=== PATIENT | male | born 1970 | race Caucasian/White ===

== ENCOUNTER 2016-10-24 10:43 | Emergency (ER) | payer SELFPAY ==
[~2016-10-24] VITALS: Ht 190.5 cm; Wt 161.5 kg
[~2016-10-24 10:43] MED LIST: ALBUTEROL0.09 MG/A4 IH; ALBUTEROL2.5 MG/3 M IH; ALLOPURINOL100 MG PO; ATIVAN0.5 MG PO; ATORVASTATIN; BACTRIM DS 8001 TAB PO; BLOOD PRESSURE; CARDIZEM CD 18180 MG PO; CIPRO 500MG TA500 MG PO; CRUTCHES; DILTIAZEM120 MG PO; DOXYCYCLINE 10100 MG PO; FLECAINIDE ACET50 MG PO; GOOD SENSE ASP325 M1 PO; GOOD SENSE ASPI81 M1 PO; INDOCIN50 M1 RC; INDOCIN50 MG PO; LASIX40 M1 PO; LEVO-T175 MCG PO; LEVOTHROID0.05 MG PO; LEVOTHROID0.1 MG PO; LEVOTHYROXIN0.125 MG PO; MEDI-FIRST ASP325 MG PO; NAPROXEN500 MG PO; NITROGLYCERIN0.4 MG SL; NO HOME MEDICATIONS; NORCO 325 MG-101 TA1 PO; NORCO 325 MG-101 TAB PO; NORCO 325 MG-51 TAB PO; PERCOCET 7.5/321 TA1 PO; PRADAXA 150MG150 MG PO; PREDNISONE20 M1 PO; PREDNISONE20 MG PO; SPIRIVA18 MCG IH; ST. JOSEPH81 M2; SYMBICORT1 AE2 IH; TYLENOL 500MG500 MG PO; VENTOLIN0.09 MG IH; ZITHROMAX Z PA250 MG PO
[2016-10-24] MEDS ORDERED: CARDIZEM 60MG T60 MG PO (13:10)
[2016-10-24] MEDS ORDERED: RT ALBUTEROL CC18 GM IH (13:45)
[2016-10-24] MEDS ORDERED: NORCO 10-325 T1 EACH PO (13:45)
[2016-10-24 14:00] VITALS: BP 168/85
== END 2016-10-24 14:00 | disposition home or self-care (01) ==
LOC: ED 10:43
DX: I11.0 Hypertensive heart disease with heart failure (principal); I50.9 Heart failure, unspecified; J44.9 Chronic obstructive pulmonary disease, unspecified; J98.01 Acute bronchospasm; R07.89 Other chest pain; G89.29 Other chronic pain; R74.8 Abnormal levels of other serum enzymes; I48.91 Unspecified atrial fibrillation; I25.10 Atherosclerotic heart disease of native coronary artery without angina pectoris; I25.2 Old myocardial infarction; Z86.718 Personal history of other venous thrombosis and embolism; Z79.01 Long term (current) use of anticoagulants; F17.210 Nicotine dependence, cigarettes, uncomplicated; F41.9 Anxiety disorder, unspecified
CPT/HCPCS: J2270

== ENCOUNTER 2017-01-06 12:44 | Emergency (ER) | payer SELFPAY ==
[~2017-01-06] VITALS: Ht 190.5 cm; Wt 156.0 kg
[~2017-01-06 12:44] MED LIST changes: +CARDIZEM 60MG T60 MG PO; +NORCO 10-325 T1 EACH PO; +RT ALBUTEROL CC18 GM IH
[2017-01-06] MEDS ORDERED: NORCO 10-325 T1 EACH PO (16:03)
[2017-01-06] MEDS ORDERED: ATIVAN2 MG PO (16:03)
[2017-01-06] MEDS ORDERED: LOPRESSOR 550 MG/TAB PO (16:03)
[2017-01-06 16:16] VITALS: BP 109/75
== END 2017-01-06 16:15 | disposition home or self-care (01) ==
LOC: ED 12:44
DX: I48.91 Unspecified atrial fibrillation (principal); R00.2 Palpitations; R00.0 Tachycardia, unspecified; I25.10 Atherosclerotic heart disease of native coronary artery without angina pectoris; E03.9 Hypothyroidism, unspecified; J44.9 Chronic obstructive pulmonary disease, unspecified; I50.9 Heart failure, unspecified; F17.200 Nicotine dependence, unspecified, uncomplicated; Z79.02 Long term (current) use of antithrombotics/antiplatelets; Z91.14 Patient's other noncompliance with medication regimen
CPT/HCPCS: J2060; J3010

== ENCOUNTER 2017-01-14 02:27 | Emergency (ER) | payer SELFPAY ==
[~2017-01-14] VITALS: Ht 190.5 cm; Wt 150.0 kg
[~2017-01-14 02:27] MED LIST changes: +ATIVAN2 MG PO; +LOPRESSOR 550 MG/TAB PO
[2017-01-14] MEDS ORDERED: LOPRESSOR 550 MG/TAB PO (02:41)
[2017-01-14 07:00] VITALS: BP 150/74
== END 2017-01-14 07:00 | disposition home or self-care (01) ==
LOC: ED 02:27
DX: R10.12 Left upper quadrant pain (principal); R10.32 Left lower quadrant pain; R73.9 Hyperglycemia, unspecified; R74.8 Abnormal levels of other serum enzymes; I10 Essential (primary) hypertension; I48.91 Unspecified atrial fibrillation; F17.200 Nicotine dependence, unspecified, uncomplicated; Z79.02 Long term (current) use of antithrombotics/antiplatelets
CPT/HCPCS: J1885; J2060; J3010

== ENCOUNTER 2017-01-20 15:07 | Emergency (ER) | payer SELFPAY ==
[~2017-01-20] VITALS: Ht 190.5 cm; Wt 150.0 kg
[2017-01-20] MEDS ORDERED: NOVAPLUS LO (15:18)
== END 2017-01-20 15:35 | disposition left against medical advice (07) ==
LOC: ED 15:07
DX: Z79.01 Long term (current) use of anticoagulants (principal); Z53.21 Procedure and treatment not carried out due to patient leaving prior to being seen by health care provider; I48.91 Unspecified atrial fibrillation; I25.10 Atherosclerotic heart disease of native coronary artery without angina pectoris; I50.9 Heart failure, unspecified; I25.2 Old myocardial infarction; I47.1 Supraventricular tachycardia; Z86.711 Personal history of pulmonary embolism; F17.200 Nicotine dependence, unspecified, uncomplicated

== ENCOUNTER 2018-06-13 21:10 | Emergency (ER) | payer MEDICAID ==
[~2018-06-13 21:10] MED LIST changes: +NOVAPLUS LO
[2018-06-13 21:43] LABS: EOS # 0.5 (0.04-0.40); EOS % 6.8 % (0.0-4.0); HEMATOCRIT 40.1 % (42.0-52.0); HEMOGLOBIN 13.2 g/dL (13.5-18.0); LYMPH# 2.5 (1.50-4.00); MEAN CELL VOLUME 90 fl (78-100); MEAN CORPUSCULAR HEMOGLOBIN 30 pg (27-31); MEAN CORPUSCULAR HGB CONC 33 g/dL (33-37); MONO # 0.6 (0.20-0.80); NEU # 3.6 (1.40-6.50); PLATELET COUNT 160 K/mm3 (130-400); RED BLOOD COUNT 4.48 M/mm3 (4.20-5.60); RED CELL DISTRIBUTION WIDTH 13.2 % (11.5-14.5); WHITE BLOOD COUNT 7.2 K/mm3 (4.8-10.8)
[2018-06-13 21:55] LABS: ALBUMIN 5.1 g/dL (3.5-5.0); CALCIUM 10.3 mg/dL (8.4-10.2); POTASSIUM 4.3 mmol/L (3.6-5.0); TOTAL PROTEIN 8.8 g/dL (6.3-8.2)
[2018-06-13 22:03] LABS: CKMB ISOENZYME 0.7 ng/mL (0.6-3.5)
[2018-06-13] MEDS ORDERED: METFORMIN ER500 MG PO (22:05)
[2018-06-13 22:06] LABS: TROPONIN-I < 0.03 ng/mL (0.00-0.06)
[2018-06-13] MEDS ORDERED: LANTUS SOLOS100 U/ML SQ (22:06)
[2018-06-13] MEDS ORDERED: ADVAIR DISKUS1 DS2 IH (22:06)
[2018-06-13] MEDS ORDERED: ATORVASTATIN CA20 MG PO (22:07)
[2018-06-13] MEDS ORDERED: LISINOPRIL20 MG PO (22:07)
[2018-06-13] MEDS ORDERED: NITROSTAT0.3 MG SL (22:08)
[2018-06-13 22:24] LABS: D-DIMER 0.44 mg/L FEU (0.15-0.50)
[2018-06-13 22:42] LABS: URINE APPEARANCE CLEAR; URINE BILIRUBIN NEGATIVE (NEGATIVE); URINE COLOR YELLOW; URINE GLUCOSE NEGATIVE (NEGATIVE); URINE KETONE NEGATIVE (NEGATIVE); URINE NITRATE NEGATIVE (NEGATIVE); URINE PROTEIN(semi-quant) TRACE mg/dL (NEGATIVE); URINE UROBILINOGEN NORMAL (NORMAL)
[2018-06-13 22:43] LABS: URINE BLOOD NEGATIVE (NEGATIVE); URINE LEUKOCYTE ESTERASE NEGATIVE (NEGATIVE); URINE MUCUS PRESENT (NOT PRESENT); URINE WBC 0-1 /hpf (0-3)
[2018-06-13 23:56] VITALS: BP 106/56
== END 2018-06-13 23:56 | disposition short-term general hospital (02) ==
LOC: ED 21:10
PROVIDERS: Physician Assistant
DX: I25.110 Atherosclerotic heart disease of native coronary artery with unstable angina pectoris (principal); J44.9 Chronic obstructive pulmonary disease, unspecified; I48.91 Unspecified atrial fibrillation; M19.90 Unspecified osteoarthritis, unspecified site; E11.42 Type 2 diabetes mellitus with diabetic polyneuropathy; F17.210 Nicotine dependence, cigarettes, uncomplicated; Z79.84 Long term (current) use of oral hypoglycemic drugs; Z79.82 Long term (current) use of aspirin; Z88.6 Allergy status to analgesic agent; Z95.9 Presence of cardiac and vascular implant and graft, unspecified; Z87.19 Personal history of other diseases of the digestive system; Z88.8 Allergy status to other drugs, medicaments and biological substances
CPT/HCPCS: J2270; J2405; J3010; J7030

== ENCOUNTER 2018-09-15 19:04 | Emergency (ER) | payer MEDICAID ==
[~2018-09-15] VITALS: Ht 190.5 cm; Wt 146.4 kg
[~2018-09-15 19:04] MED LIST changes: +ADVAIR DISKUS1 DS2 IH; +ATORVASTATIN CA20 MG PO; +LANTUS SOLOS100 U/ML SQ; +LISINOPRIL20 MG PO; +METFORMIN ER500 MG PO; +NITROSTAT0.3 MG SL
[2018-09-15 20:05] LABS: EOS # 0.4 (0.04-0.40); HEMATOCRIT 36.7 % (42.0-52.0); HEMOGLOBIN 11.9 g/dL (13.5-18.0); LYMPH# 1.9 (1.50-4.00); MEAN CELL VOLUME 91 fl (78-100); MEAN CORPUSCULAR HEMOGLOBIN 30 pg (27-31); MEAN CORPUSCULAR HGB CONC 32 g/dL (33-37); MONO # 0.6 (0.20-0.80); PLATELET COUNT 146 K/mm3 (130-400); RED BLOOD COUNT 4.02 M/mm3 (4.20-5.60); RED CELL DISTRIBUTION WIDTH 14.6 % (11.5-14.5); WHITE BLOOD COUNT 5.9 K/mm3 (4.8-10.8)
[2018-09-15 20:13] LABS: EOS % 6.6 % (0.0-4.0)
[2018-09-15 20:25] LABS: D-DIMER 0.86 mg/L FEU (0.15-0.50); PARTIAL THROMBOPLASTIN TIME 24.1 SECONDS (21.0-32.0); PROTHROMBIN TIME 9.6 SECONDS (9.0-12.0)
[2018-09-15 20:59] LABS: ALBUMIN 4.8 g/dL (3.5-5.0); POTASSIUM 3.7 mmol/L (3.6-5.0); TOTAL BILIRUBIN 0.6 mg/dL (0.2-1.3); TOTAL PROTEIN 8.4 g/dL (6.3-8.2)
[2018-09-15 21:02] LABS: URINE APPEARANCE CLEAR; URINE BILIRUBIN NEGATIVE (NEGATIVE); URINE BLOOD NEGATIVE (NEGATIVE); URINE COLOR YELLOW; URINE GLUCOSE NEGATIVE (NEGATIVE); URINE KETONE NEGATIVE (NEGATIVE); URINE LEUKOCYTE ESTERASE NEGATIVE (NEGATIVE); URINE NITRATE NEGATIVE (NEGATIVE); URINE PROTEIN(semi-quant) NEGATIVE (NEGATIVE); URINE UROBILINOGEN NORMAL (NORMAL); URINE WBC 0-1 /hpf (0-3)
[2018-09-15 21:06] LABS: ERYTHROCYTE SEDIMENTATION RATE 66 mm/hr (0-15)
[2018-09-15] MEDS ORDERED: NORCO 325 MG-51 TA1 PO (23:31)
[2018-09-15] MEDS ORDERED: PREDNISONE20 M1 PO (23:31)
[2018-09-15] MEDS ORDERED: LORAZEPAM0.5 M1 PO (23:31)
[2018-09-15 23:43] VITALS: BP 110/75
== END 2018-09-15 23:43 | disposition home or self-care (01) ==
LOC: ED 19:04
PROVIDERS: Family Medicine
DX: G90.50 Complex regional pain syndrome I, unspecified (principal); M10.9 Gout, unspecified; I50.9 Heart failure, unspecified; F41.9 Anxiety disorder, unspecified; I48.91 Unspecified atrial fibrillation; I25.10 Atherosclerotic heart disease of native coronary artery without angina pectoris; E11.42 Type 2 diabetes mellitus with diabetic polyneuropathy; F17.210 Nicotine dependence, cigarettes, uncomplicated; Z98.890 Other specified postprocedural states
CPT/HCPCS: J0595; J2060

== ENCOUNTER 2018-09-30 18:16 | Emergency (ER) | payer MEDICAID ==
[~2018-09-30] VITALS: Ht 190.5 cm; Wt 152.3 kg
[~2018-09-30 18:16] MED LIST changes: +LORAZEPAM0.5 M1 PO; +NORCO 325 MG-51 TA1 PO
[2018-09-30] MEDS ORDERED: COLCHICINE0.6 M1 PO (19:52)
[2018-09-30] MEDS ORDERED: ZYLOPRIM 100MG100 MG PO (20:25)
[2018-09-30] MEDS ORDERED: ULORIC40 MG PO (20:25)
[2018-09-30 20:28] LABS: EOS # 0.3 (0.04-0.40); HEMATOCRIT 40.2 % (42.0-52.0); HEMOGLOBIN 12.8 g/dL (13.5-18.0); LYMPH# 2.1 (1.50-4.00); MEAN CELL VOLUME 90 fl (78-100); MEAN CORPUSCULAR HEMOGLOBIN 29 pg (27-31); MEAN CORPUSCULAR HGB CONC 32 g/dL (33-37); MEAN PLATELET VOLUME 9.1 fl (7.4-10.4); MONO # 0.7 (0.20-0.80); NEU # 7.4 (1.40-6.50); PLATELET COUNT 254 K/mm3 (130-400); RED BLOOD COUNT 4.46 M/mm3 (4.20-5.60); RED CELL DISTRIBUTION WIDTH 14.4 % (11.5-14.5); WHITE BLOOD COUNT 10.5 K/mm3 (4.8-10.8)
[2018-09-30 20:50] LABS: ALBUMIN 4.6 g/dL (3.5-5.0); ALT/SGPT 38 U/L (0-55); AST-SGOT 30 U/L (5-34); CALCIUM 10.8 mg/dL (8.4-10.2); GLUCOSE 86 mg/dL (75-110); POTASSIUM 3.7 mmol/L (3.5-5.1); SODIUM 137 mmol/L (136-145); TOTAL BILIRUBIN 0.6 mg/dL (0.2-1.2); TOTAL PROTEIN 8.5 g/dL (6.4-8.3)
[2018-09-30 20:55] LABS: CARBON DIOXIDE 16 mmol/L (22-29)
[2018-09-30 20:56] LABS: TROPONIN-I < 0.03 ng/mL (<0.030)
[2018-09-30 21:16] LABS: ERYTHROCYTE SEDIMENTATION RATE 83 mm/hr (0-15)
[2018-10-01 02:05] VITALS: BP 113/68
[2018-10-01 08:05] LABS: URINE APPEARANCE CLEAR; URINE BILIRUBIN NEGATIVE (NEGATIVE); URINE BLOOD NEGATIVE (NEGATIVE); URINE COLOR YELLOW; URINE GLUCOSE NEGATIVE (NEGATIVE); URINE KETONE NEGATIVE (NEGATIVE); URINE LEUKOCYTE ESTERASE NEGATIVE (NEGATIVE); URINE NITRATE NEGATIVE (NEGATIVE); URINE PROTEIN(semi-quant) TRACE mg/dL (NEGATIVE); URINE UROBILINOGEN NORMAL (NORMAL)
[2018-10-01 08:06] LABS: URINE WBC 0-1 /hpf (0-3)
== END 2018-10-01 02:05 | disposition short-term general hospital (02) ==
LOC: ED 18:16
PROVIDERS: Family Medicine
DX: M25.50 Pain in unspecified joint (principal); E87.2 Acidosis; N17.8 Other acute kidney failure; R34 Anuria and oliguria; I48.91 Unspecified atrial fibrillation; E11.40 Type 2 diabetes mellitus with diabetic neuropathy, unspecified; I10 Essential (primary) hypertension; Z98.890 Other specified postprocedural states
CPT/HCPCS: J3010; J7030

== ENCOUNTER 2018-10-04 21:34 | Emergency (ER) | payer MEDICAID ==
[~2018-10-04] VITALS: Ht 188 cm; Wt 145.5 kg
[2018-10-04 21:34] VITALS: BP 98/50
[~2018-10-04 21:34] MED LIST changes: +COLCHICINE0.6 M1 PO; +ULORIC40 MG PO; +ZYLOPRIM 100MG100 MG PO
== END 2018-10-04 21:45 | disposition left against medical advice (07) ==
LOC: ED 21:34
DX: R52 Pain, unspecified (principal); Z53.21 Procedure and treatment not carried out due to patient leaving prior to being seen by health care provider

== ENCOUNTER 2018-10-18 19:54 | Emergency (ER) | payer MEDICAID ==
[~2018-10-18] VITALS: Ht 190.5 cm; Wt 150.0 kg
[2018-10-18 20:00] VITALS: BP 101/47
[2018-10-18 21:18] LABS: EOS # 0.3 (0.04-0.40); EOS % 3.2 % (0.0-4.0); HEMOGLOBIN 12.6 g/dL (13.5-18.0); LYMPH# 1.6 (1.50-4.00); MEAN CELL VOLUME 90 fl (78-100); MEAN CORPUSCULAR HEMOGLOBIN 28 pg (27-31); MEAN CORPUSCULAR HGB CONC 32 g/dL (33-37); MEAN PLATELET VOLUME 9.1 fl (7.4-10.4); MONO # 0.5 (0.20-0.80); PLATELET COUNT 161 K/mm3 (130-400); RED BLOOD COUNT 4.45 M/mm3 (4.20-5.60); RED CELL DISTRIBUTION WIDTH 14.4 % (11.5-14.5); WHITE BLOOD COUNT 8.4 K/mm3 (4.8-10.8)
[2018-10-18 21:52] LABS: ACETAMINOPHEN 15 ug/mL; ALBUMIN 4.3 g/dL (3.5-5.0); ALCOHOL IN-HOUSE 155 mg/dL (<10); ALT/SGPT 44 U/L (0-55); AST-SGOT 24 U/L (5-34); CALCIUM 9.8 mg/dL (8.3-10.5); GLUCOSE 126 mg/dL (75-110); SODIUM 139 mmol/L (136-145); TOTAL BILIRUBIN 0.8 mg/dL (0.2-1.2); TOTAL PROTEIN 7.6 g/dL (6.4-8.3)
[2018-10-18 21:55] LABS: CARBON DIOXIDE 17 mmol/L (22-29)
[2018-10-18 22:07] LABS: ERYTHROCYTE SEDIMENTATION RATE 58 mm/hr (0-15)
== END 2018-10-18 22:25 | disposition left against medical advice (07) ==
LOC: ED 19:54
PROVIDERS: Nurse Practitioner Family
DX: M25.50 Pain in unspecified joint (principal); M79.10 Myalgia, unspecified site; M06.9 Rheumatoid arthritis, unspecified; I48.91 Unspecified atrial fibrillation; E11.9 Type 2 diabetes mellitus without complications; I10 Essential (primary) hypertension; E07.9 Disorder of thyroid, unspecified; E11.42 Type 2 diabetes mellitus with diabetic polyneuropathy; F17.210 Nicotine dependence, cigarettes, uncomplicated; Z98.890 Other specified postprocedural states
CPT/HCPCS: J3010

== ENCOUNTER 2019-01-19 23:13 | Emergency (ER) | payer MEDICAID ==
[~2019-01-19] VITALS: Ht 190.5 cm; Wt 145.5 kg
[2019-01-19] MEDS ORDERED: ELIQUIS5 MG PO (23:29)
[2019-01-20 00:54] LABS: EOS # 0.2 (0.04-0.40); EOS % 4.2 % (0.0-4.0); HEMATOCRIT 35.2 % (42.0-52.0); HEMOGLOBIN 11.2 g/dL (13.5-18.0); LYMPH# 1.5 (1.50-4.00); MEAN CELL VOLUME 93 fl (78-100); MEAN CORPUSCULAR HEMOGLOBIN 30 pg (27-31); MEAN CORPUSCULAR HGB CONC 32 g/dL (33-37); MEAN PLATELET VOLUME 9.1 fl (7.4-10.4); MONO # 0.4 (0.20-0.80); NEU # 3.2 (1.40-6.50); PLATELET COUNT 138 K/mm3 (130-400); RED BLOOD COUNT 3.77 M/mm3 (4.20-5.60); RED CELL DISTRIBUTION WIDTH 14.4 % (11.5-14.5); WHITE BLOOD COUNT 5.4 K/mm3 (4.8-10.8)
[2019-01-20 00:55] LABS: ALBUMIN 4.1 g/dL (3.5-5.0); POTASSIUM 3.6 mmol/L (3.5-5.1)
[2019-01-20 00:57] LABS: CALCIUM 9.3 mg/dL (8.3-10.5)
[2019-01-20 00:58] LABS: TOTAL PROTEIN 7.7 g/dL (6.4-8.3)
[2019-01-20 00:59] LABS: TOTAL BILIRUBIN 0.7 mg/dL (0.2-1.2)
[2019-01-20] MEDS ORDERED: PREDNISONE10 MG PO (01:26)
[2019-01-20] MEDS ORDERED: NORCO 10-325 T1 EACH PO (01:26)
[2019-01-20 01:44] VITALS: BP 133/78
== END 2019-01-20 01:44 | disposition home or self-care (01) ==
LOC: ED 23:13
PROVIDERS: Family Medicine
DX: M17.0 Bilateral primary osteoarthritis of knee (principal); M19.072 Primary osteoarthritis, left ankle and foot; M19.071 Primary osteoarthritis, right ankle and foot; M19.011 Primary osteoarthritis, right shoulder; M19.012 Primary osteoarthritis, left shoulder; M19.031 Primary osteoarthritis, right wrist; M19.032 Primary osteoarthritis, left wrist; I12.0 Hypertensive chronic kidney disease with stage 5 chronic kidney disease or end stage renal disease; E11.22 Type 2 diabetes mellitus with diabetic chronic kidney disease; N18.6 End stage renal disease; E03.9 Hypothyroidism, unspecified; I48.91 Unspecified atrial fibrillation; F17.210 Nicotine dependence, cigarettes, uncomplicated; Z95.9 Presence of cardiac and vascular implant and graft, unspecified; Z79.84 Long term (current) use of oral hypoglycemic drugs; Z79.01 Long term (current) use of anticoagulants
CPT/HCPCS: J3301

== ENCOUNTER 2019-03-11 09:20 | Emergency (ER) | payer MEDICAID ==
[~2019-03-11] VITALS: Wt 166.6 kg
[~2019-03-11 09:20] MED LIST changes: +ELIQUIS5 MG PO; +PREDNISONE10 MG PO
[2019-03-11] MEDS ORDERED: B-121000 MCG PO (09:29)
[2019-03-11] MEDS ORDERED: ACETAMINOPHEN-H1 TA1 PO (09:30)
[2019-03-11 09:52] LABS: EOS % 0.9 % (0.0-4.0); HEMATOCRIT 28.9 % (42.0-52.0); HEMOGLOBIN 9.1 g/dL (13.5-18.0); MEAN CELL VOLUME 94 fl (78-100); MEAN CORPUSCULAR HEMOGLOBIN 30 pg (27-31); MEAN CORPUSCULAR HGB CONC 32 g/dL (33-37); MEAN PLATELET VOLUME 8.2 fl (7.4-10.4); MONO # 0.5 (0.20-0.80); NEU # 3.3 (1.40-6.50); PLATELET COUNT 90 K/mm3 (130-400); RED BLOOD COUNT 3.06 M/mm3 (4.20-5.60); RED CELL DISTRIBUTION WIDTH 15.7 % (11.5-14.5); WHITE BLOOD COUNT 4.5 K/mm3 (4.8-10.8)
[2019-03-11 09:53] LABS: LYMPH# 0.7 (1.50-4.00)
[2019-03-11 10:03] LABS: ALBUMIN 3.8 g/dL (3.5-5.0)
[2019-03-11 10:04] LABS: POTASSIUM 4.6 mmol/L (3.5-5.1)
[2019-03-11 10:05] LABS: CALCIUM 9.1 mg/dL (8.3-10.5)
[2019-03-11 10:06] LABS: TOTAL PROTEIN 7.2 g/dL (6.4-8.3)
[2019-03-11 10:08] LABS: TOTAL BILIRUBIN 1.1 mg/dL (0.2-1.2)
[2019-03-11] MEDS ORDERED: NORCO 10-325 T1 EACH PO (10:55)
[2019-03-11 11:00] VITALS: BP 167/82
== END 2019-03-11 11:00 | disposition home or self-care (01) ==
LOC: ED 09:20
PROVIDERS: Nurse Practitioner Primary Care
DX: R10.31 Right lower quadrant pain (principal); I11.0 Hypertensive heart disease with heart failure; I50.9 Heart failure, unspecified; I25.2 Old myocardial infarction; F17.210 Nicotine dependence, cigarettes, uncomplicated; Z95.9 Presence of cardiac and vascular implant and graft, unspecified; Z98.890 Other specified postprocedural states
CPT/HCPCS: J2270

== ENCOUNTER 2019-05-29 16:28 | Emergency (ER) | payer MEDICAID ==
[~2019-05-29] VITALS: Wt 157.3 kg
[~2019-05-29 16:28] MED LIST changes: +ACETAMINOPHEN-H1 TA1 PO; +B-121000 MCG PO
[2019-05-29] MEDS ORDERED: PANTOPRAZOLE SO40 MG PO (17:35)
[2019-05-29] MEDS ORDERED: FOLIC ACID1 MG PO (17:35)
[2019-05-29] MEDS ORDERED: THIAMINE HCL100 M2 PO (17:35)
[2019-05-29] MEDS ORDERED: ACIDOPHILUS1 EAC3 PO (17:35)
[2019-05-29 18:49] LABS: EOS # 0.3 (0.04-0.40); EOS % 3.2 % (0.0-4.0); HEMATOCRIT 36.2 % (42.0-52.0); HEMOGLOBIN 11.3 g/dL (13.5-18.0); LYMPH# 2.1 (1.50-4.00); MEAN CELL VOLUME 95 fl (78-100); MEAN CORPUSCULAR HEMOGLOBIN 30 pg (27-31); MEAN CORPUSCULAR HGB CONC 31 g/dL (33-37); MEAN PLATELET VOLUME 9.1 fl (7.4-10.4); MONO # 0.5 (0.20-0.80); PLATELET COUNT 230 K/mm3 (130-400); RED BLOOD COUNT 3.83 M/mm3 (4.20-5.60); RED CELL DISTRIBUTION WIDTH 14.2 % (11.5-14.5); WHITE BLOOD COUNT 8.9 K/mm3 (4.8-10.8)
[2019-05-29 18:53] LABS: ALBUMIN 4.2 g/dL (3.5-5.0); POTASSIUM 4.1 mmol/L (3.5-5.1); SODIUM 139 mmol/L (136-145)
[2019-05-29 18:55] LABS: GLUCOSE 114 mg/dL (75-110)
[2019-05-29 18:57] LABS: TOTAL BILIRUBIN 0.4 mg/dL (0.2-1.2)
[2019-05-29 18:58] LABS: ALCOHOL IN-HOUSE 147 mg/dL (<10)
[2019-05-29 19:00] LABS: AST-SGOT 40 U/L (5-34); CARBON DIOXIDE 17 mmol/L (22-29)
[2019-05-29 19:02] LABS: ALT/SGPT 43 U/L (0-55)
[2019-05-29 19:03] LABS: LIPASE 29 U/L (8-78)
[2019-05-29 19:53] LABS: TROPONIN-I < 0.03 ng/mL (<0.030)
[2019-05-29 19:55] LABS: URINE WBC 0 /hpf (0-3)
[2019-05-29 20:28] LABS: URINE APPEARANCE CLEAR; URINE BILIRUBIN NEGATIVE (NEGATIVE); URINE BLOOD NEGATIVE (NEGATIVE); URINE COLOR YELLOW; URINE GLUCOSE NEGATIVE (NEGATIVE); URINE KETONE NEGATIVE (NEGATIVE); URINE LEUKOCYTE ESTERASE NEGATIVE (NEGATIVE); URINE NITRATE NEGATIVE (NEGATIVE); URINE PROTEIN(semi-quant) TRACE mg/dL (NEGATIVE); URINE UROBILINOGEN NORMAL (NORMAL)
[2019-05-29 22:45] VITALS: BP 142/68
== END 2019-05-29 22:45 | disposition home or self-care (01) ==
LOC: ED 16:28
PROVIDERS: Physician Assistant
DX: J44.9 Chronic obstructive pulmonary disease, unspecified (principal); R07.89 Other chest pain; I11.0 Hypertensive heart disease with heart failure; I50.9 Heart failure, unspecified; M19.90 Unspecified osteoarthritis, unspecified site; E11.9 Type 2 diabetes mellitus without complications; E78.5 Hyperlipidemia, unspecified; K21.9 Gastro-esophageal reflux disease without esophagitis; E03.9 Hypothyroidism, unspecified; I48.91 Unspecified atrial fibrillation; F17.210 Nicotine dependence, cigarettes, uncomplicated; Z86.718 Personal history of other venous thrombosis and embolism; Z79.01 Long term (current) use of anticoagulants; Z79.84 Long term (current) use of oral hypoglycemic drugs; Z79.51 Long term (current) use of inhaled steroids
CPT/HCPCS: J1940; J2270; J3301

== ENCOUNTER 2019-06-18 16:04 | Inpatient (IN) | payer MEDICAID ==
[~2019-06-18] VITALS: Ht 190.5 cm; Wt 155.0 kg
[~2019-06-18 16:04] MED LIST changes: +ACIDOPHILUS1 EAC3 PO; +FOLIC ACID1 MG PO; +METOPROLOL TAR100 M1 PO; -NITROSTAT0.3 MG SL; +NITROSTAT0.4 M1 SL; +PANTOPRAZOLE SO40 MG PO; +THIAMINE HCL100 M2 PO; -TYLENOL 500MG500 MG PO; +TYLENOL EXTRA500 M2 PO
[2019-06-18] MEDS ORDERED: CELEXA 20MG20 MG/TA1 PO (16:18)
[2019-06-18] MEDS ORDERED: ELIQUIS5 MG PO (16:19)
[2019-06-18 17:08] LABS: EOS # 0.1 (0.04-0.40); EOS % 0.6 % (0.0-4.0); HEMATOCRIT 39.1 % (42.0-52.0); HEMOGLOBIN 12.3 g/dL (13.5-18.0); LYMPH# 1.5 (1.50-4.00); MEAN CELL VOLUME 96 fl (78-100); MEAN CORPUSCULAR HEMOGLOBIN 30 pg (27-31); MEAN CORPUSCULAR HGB CONC 32 g/dL (33-37); MONO # 0.5 (0.20-0.80); NEU # 8.2 (1.40-6.50); PLATELET COUNT 156 K/mm3 (130-400); RED BLOOD COUNT 4.09 M/mm3 (4.20-5.60); RED CELL DISTRIBUTION WIDTH 14.8 % (11.5-14.5); WHITE BLOOD COUNT 10.3 K/mm3 (4.8-10.8)
[2019-06-18 17:20] LABS: POTASSIUM 4.8 mmol/L (3.5-5.1)
[2019-06-18 17:21] LABS: CALCIUM 9.5 mg/dL (8.3-10.5)
[2019-06-18 17:22] LABS: TOTAL PROTEIN 8.1 g/dL (6.4-8.3)
[2019-06-18 17:24] LABS: TOTAL BILIRUBIN 0.5 mg/dL (0.2-1.2)
[2019-06-18 19:59] VITALS: BP 126/62
[2019-06-18 22:24] VITALS: BP 135/76
--- NOTE | 2019-06-18 22:30 | NUR ---
Patient admitted from the ER. Spouse, Marta, present. Patient reports pain at a 9/10 in his L lung. Upon auscultation patient has both insp./exp. wheezes in all four quadrants. BLE have none pitting edema. 20G in R AC and placed in ER. Patient reports occasional dizziness when standing/moving. Cough is productive with yellow mucus. Patient has SOB upon exertion. Tele with O2 probe initiated. Since, there have been a couple of episodes of bigeminy. Patient placed on Low Carb diet. XRay was unremarkable. NS running at 100ml/hour. Patient provided sugarfree jello/applesauce/sprite and ham sandwich as he had not eaten since lunch. Glucose was [address] and provider [address] in place a sliding scale of insulin. 6 units provided. Spouse left for the night shortly after admission to the floor.
--- NOTE | 2019-06-19 00:09 | NUR ---
Patient provided midnight meds. Patient is very diaphoretic and very tired/sleeping.
[2019-06-19 02:00] VITALS: BP 136/85
--- NOTE | 2019-06-19 06:24 | NUR ---
Patient slept through the night and is difficult to wake. Patient very diaphoretic throughout the night. Gown changed this am as it was drenched with sweat but no fever. Patient does have an odd/unpleasant sweet odor. ABGs unable to be obtained by lab due to difficulty accessing artery. Stefani Rea APRN notified last night about the ABG lab and stated to not get the lab. Zofran provided again before solumedrol IV d/t patient reporting that solumedrol has made him vomit without zofran in the past. Patient voided and flushed before being able to measure. Patient reports that he "feels better than yesterday morning," and "no pain like last night" when he breathes. Patient educated on importance of measuring fluids to make sure he is not retaining excess fluids. Patient confirmed understanding.
[2019-06-19 06:25] VITALS: BP 143/77
--- NOTE | 2019-06-19 07:07 | NUR ---
Report given to IDANIA Shepherd.
[2019-06-19 07:24] LABS: HEMATOCRIT 35.1 % (42.0-52.0); HEMOGLOBIN 10.7 g/dL (13.5-18.0); MEAN CELL VOLUME 95 fl (78-100); MEAN CORPUSCULAR HEMOGLOBIN 29 pg (27-31); MEAN CORPUSCULAR HGB CONC 31 g/dL (33-37); MEAN PLATELET VOLUME 8.9 fl (7.4-10.4); PLATELET COUNT 101 K/mm3 (130-400); RED BLOOD COUNT 3.69 M/mm3 (4.20-5.60); RED CELL DISTRIBUTION WIDTH 14.4 % (11.5-14.5); WHITE BLOOD COUNT 3.6 K/mm3 (4.8-10.8)
[2019-06-19 07:42] LABS: POTASSIUM 5.3 mmol/L (3.5-5.1)
[2019-06-19 07:45] LABS: LYMPHOCYTE 7 % (20-51); MONOCYTE 1 % (3-10); NEUTROPHILS 88 % (42-75)
[2019-06-19 10:10] VITALS: BP 144/69
--- NOTE | 2019-06-19 10:19 | NUR ---
Midlevel at bedside this a.m. as well. Patient is alert and oriented x3. Patient reports he is feeling much better. Patient does have some dyspnea with exersion. Noted rhonchi throughout with auscutation. Abdomen obese, nontender, active bowel sounds. IV noted in right AC NS at 100cc/hr with abx as schedule, no sign of influtration or irritation at this time. Patient is unstable with ambulation, 1 assist needed. Sinus rythm noted on monitor.
--- NOTE | 2019-06-19 11:08 | NUR ---
0843 Rocio Vences APRN at bedside during assessment reviewed morning lab results WBC 3.6, RBC 3.69, H/H 10.7/35.1 PLT 101, Na 138, K 5.3, Bun 44, Cr 1.3, GFR 58. Reviewed order for Sarhaquis to be given this a.m.. No changes at this time. Continue with NS at 100cc/hr. No current signs of bleeding. Will recheck CBC at 1400. Patient appears in no distress at this time. 1000 PRN tylenol given for bilateral leg pain and mild discomfort with cough. Patient rates pain at a 6 at this time. Reports he has chronic chest discomfort that sits at a level of 5 on a numeric pain scale at home. He reports he takes Maple for this. 1100 Patient reports pain is in chest at a 9. BP 148/78 HR 83. No abnormalities noted on Telemetry. Pain is not reproducable with palpation, cough. Patient reports discomfort is constant, denies N/V, dizzyness, vision, sensation changes. Notified Rocio Vences APRN. EKG completed. Rocio Vences APRN Reviewed. No additional orders for work up at this time. K-pad provided to assist with discomfort. Will continue monitor.
--- NOTE | 2019-06-19 12:05 | NUR ---
THIS RN SPOKE TO YAN WITH MEDICAL RECORDS AND REQUESTED OLD RECORDS FROM [facility] FOR THIS PT. AYN STATES THAT SHE WILL FAX RECORDS SOON.
[2019-06-19 14:03] LABS: HEMATOCRIT 34.2 % (42.0-52.0); HEMOGLOBIN 10.6 g/dL (13.5-18.0); MEAN CELL VOLUME 96 fl (78-100); MEAN CORPUSCULAR HEMOGLOBIN 30 pg (27-31); MEAN CORPUSCULAR HGB CONC 31 g/dL (33-37); MEAN PLATELET VOLUME 9.1 fl (7.4-10.4); PLATELET COUNT 107 K/mm3 (130-400); RED BLOOD COUNT 3.58 M/mm3 (4.20-5.60); RED CELL DISTRIBUTION WIDTH 14.5 % (11.5-14.5); WHITE BLOOD COUNT 5.4 K/mm3 (4.8-10.8)
[2019-06-19 14:07] VITALS: BP 143/67
[2019-06-19 14:12] LABS: POTASSIUM 5.1 mmol/L (3.5-5.1); SODIUM 138 mmol/L (136-145)
[2019-06-19 14:13] LABS: CALCIUM 8.9 mg/dL (8.3-10.5); GLUCOSE 223 mg/dL (75-110)
[2019-06-19 14:14] LABS: LYMPHOCYTE 7 % (20-51); MONOCYTE 4 % (3-10); NEUTROPHILS 83 % (42-75)
[2019-06-19 14:15] LABS: CARBON DIOXIDE 18 mmol/L (22-29)
[2019-06-19 14:26] LABS: TROPONIN-I < 0.03 ng/mL (<0.030)
[2019-06-19] MEDS ORDERED: ZITHROMAX 250M250 MG PO (16:18)
[2019-06-19] MEDS ORDERED: ALBUTEROL2.5 MG/3 M IH (16:19)
[2019-06-19] MEDS ORDERED: PREDNISONE20 M1 PO (16:19)
--- NOTE | 2019-06-19 17:36 | NUR ---
Patient requesting to be discharge home. Rocio CISNEROS reviewed patient status and met with patient. Discharge orders provided. Reviewed discharge packet with patient. Provided written script for Nebulizer. Other scripts E-scribed. Patient spouse was present for discharge instructions and review of S/S of emergent follow up. Reviewed activity tolerance, Hyperglycemia and Hypoglycemia S/S. Discussed daily weight recommendations and guidelines for physician notification. Reviewed follow up appointment with Dr. Blue on Monday06/24/2019 at 1030a.m.. Reviewed low carbohydrate diet, heart healthy low sodium choices. Patient was receiving home health with [facility] 3days a week. Patient stated he was ok with information being provided to [facility] to continue care as prior. Fax sent to [phone] Arvind) at [facility].
== END 2019-06-19 17:34 | disposition home health service (06) | DRG 191 ==
LOC: ED 16:04 → MED/SURG 19:20
PROVIDERS: Physician Assistant; ADMIT Nurse Practitioner Family
DX: J44.0 Chronic obstructive pulmonary disease with (acute) lower respiratory infection (principal); I82.409 Acute embolism and thrombosis of unspecified deep veins of unspecified lower extremity; Z68.41 Body mass index [BMI] 40.0-44.9, adult; E11.65 Type 2 diabetes mellitus with hyperglycemia; I50.9 Heart failure, unspecified; J20.9 Acute bronchitis, unspecified; I48.91 Unspecified atrial fibrillation; I11.0 Hypertensive heart disease with heart failure; J44.1 Chronic obstructive pulmonary disease with (acute) exacerbation; N28.9 Disorder of kidney and ureter, unspecified; E87.5 Hyperkalemia; K21.9 Gastro-esophageal reflux disease without esophagitis; E66.01 Morbid (severe) obesity due to excess calories; E03.9 Hypothyroidism, unspecified; F17.210 Nicotine dependence, cigarettes, uncomplicated; Z79.01 Long term (current) use of anticoagulants; Z79.84 Long term (current) use of oral hypoglycemic drugs; Z91.81 History of falling; Z88.9 Allergy status to unspecified drugs, medicaments and biological substances; Z88.6 Allergy status to analgesic agent
CPT/HCPCS: A4216; J0456; J0696; J1815; J2405; J2930; J7030; J7050

== ENCOUNTER 2019-07-10 17:05 | Inpatient (IN) | payer MEDICAID ==
[~2019-07-10] VITALS: Ht 190.5 cm; Wt 157.1 kg
[~2019-07-10 17:05] MED LIST changes: +CELEXA 20MG20 MG/TA1 PO; +ZITHROMAX 250M250 MG PO
[2019-07-10 17:49] LABS: HEMATOCRIT 32.6 % (42.0-52.0); HEMOGLOBIN 10.2 g/dL (13.5-18.0); MEAN CELL VOLUME 95 fl (78-100); MEAN CORPUSCULAR HEMOGLOBIN 30 pg (27-31); MEAN CORPUSCULAR HGB CONC 31 g/dL (33-37); MEAN PLATELET VOLUME 8.9 fl (7.4-10.4); PLATELET COUNT 105 K/mm3 (130-400); RED BLOOD COUNT 3.42 M/mm3 (4.20-5.60); RED CELL DISTRIBUTION WIDTH 15.2 % (11.5-14.5); WHITE BLOOD COUNT 4.4 K/mm3 (4.8-10.8)
[2019-07-10 17:58] LABS: ALBUMIN 4.1 g/dL (3.5-5.0); POTASSIUM 5.1 mmol/L (3.5-5.1)
[2019-07-10 18:00] LABS: CALCIUM 9.6 mg/dL (8.3-10.5)
[2019-07-10 18:01] LABS: TOTAL PROTEIN 6.9 g/dL (6.4-8.3)
[2019-07-10 18:03] LABS: TOTAL BILIRUBIN 0.9 mg/dL (0.2-1.2)
[2019-07-10 18:10] LABS: NEUTROPHILS 88 % (42-75)
[2019-07-10 18:11] LABS: LYMPHOCYTE 8 % (20-51); MONOCYTE 4 % (3-10)
[2019-07-10 20:01] VITALS: BP 138/62
[2019-07-10 20:09] VITALS: BP 138/62
[2019-07-10 22:52] VITALS: BP 114/59
[2019-07-11] VITALS (9 sets, daily range): BP systolic 82–148; BP diastolic 52–90
--- NOTE | 2019-07-11 02:05 | NUR ---
Patient reports a headache of 8/. 650mg of tylenol provided. Patient IV secured with coban. Patient odor strong and has poor hygiene.
--- NOTE | 2019-07-11 06:20 | NUR ---
PT RESTING IN BED THROUGH OUT THE SHIFT. PT IS RESTLESS AFTER HE WAS ADMITED TO THE FLOOR. PT STATES HE IS JUST TOO HOT TO STAY IN BED. FAN WAS OFFERED PT STATED HE WOULD TRY IT. A BOX FAN WAS PALCED AT BED SIDE AND TURNED ON LOW PER PT REQUEST. PT IS ABLE TO REST IN BED AFTER FAN WAS PLACED IN ROOM. PT WAS PLACED ON HEAD WAITRESS TO MONITOR HIS TACHYCARDIA. TYLENOL 650MG GIVEN FOR LOW GRADE FEVER = 99.3. AT THE END OF THE SHIFT PT HEART RATE PER TELE= 73. PT V/S= 97.7, R=20, B/P=114/68, SAO2=93% ON 2L PER NC. PT HAS TO BE TOLD SEVERAL DIFFERENT TIMES TO KEEP O2 IN PLACE. PT CONTINUES TO COMPLINE ABOUT VARIOUS ACHES AND PAINS RELATED TO FLU LIKE SYMPTOMS. PT RECIVES TYLENOL 3 TIMES SINCE ADMISSION.
[2019-07-11 06:50] LABS: URINE WBC 0 /hpf (0-3)
[2019-07-11 07:04] LABS: HEMATOCRIT 30.4 % (42.0-52.0); HEMOGLOBIN 9.3 g/dL (13.5-18.0); MEAN CELL VOLUME 97 fl (78-100); MEAN CORPUSCULAR HEMOGLOBIN 30 pg (27-31); MEAN CORPUSCULAR HGB CONC 31 g/dL (33-37); MEAN PLATELET VOLUME 9.5 fl (7.4-10.4); PLATELET COUNT 86 K/mm3 (130-400); RED BLOOD COUNT 3.14 M/mm3 (4.20-5.60); RED CELL DISTRIBUTION WIDTH 15.2 % (11.5-14.5); WHITE BLOOD COUNT 2.6 K/mm3 (4.8-10.8)
[2019-07-11 07:33] LABS: URINE APPEARANCE CLEAR; URINE BILIRUBIN NEGATIVE (NEGATIVE); URINE BLOOD NEGATIVE (NEGATIVE); URINE COLOR YELLOW; URINE GLUCOSE NEGATIVE (NEGATIVE); URINE KETONE NEGATIVE (NEGATIVE); URINE LEUKOCYTE ESTERASE NEGATIVE (NEGATIVE); URINE MUCUS PRESENT (NOT PRESENT); URINE NITRATE NEGATIVE (NEGATIVE); URINE PROTEIN(semi-quant) TRACE mg/dL (NEGATIVE); URINE UROBILINOGEN NORMAL (NORMAL)
[2019-07-11 07:34] LABS: POTASSIUM 5.8 mmol/L (3.5-5.1)
[2019-07-11 07:53] LABS: BAND 1 % (0-10); LYMPHOCYTE 9 % (20-51); MICROCYTOSIS 1+; MONOCYTE 1 % (3-10); NEUTROPHILS 89 % (42-75); STOMATOCYTE 2+
--- NOTE | 2019-07-11 14:30 | NUR ---
The pt removes his oxygen by himself and his oxygen saturation is noted to be 86% while resting in bed at this time. The pt reports mild sob and appears to be in no distress at this time. 2 liters of oxygen is placed back on the pt via nasal cannula and his saturations recover to 92%.
--- NOTE | 2019-07-11 15:12 | NUR ---
The pt is c/o nausea. The pt is given zofran in order to alleviate nausea. The pt then requests a sandwich and ice cream to eat. I explain to the pt that if he is feeling ill to his stomach that something light would be best to consume. The pt is provided with chicken broth at this time.
--- NOTE | 2019-07-11 17:33 | NUR ---
Pt is resting comfortably in bed, pt playing game on his cell phone. The pt ate his supper meal and had no complaints of nausea or pain at this time. The pt denies any needs. Respirations are even and unlabored.
--- NOTE | 2019-07-11 21:56 | NUR ---
Patient sitting up in bed at this time watching TV. Small snack given per patient request with HS medications. FSBS 244, 2units of Novolog given per order. Patient reports pain in right upper abdominal area below ribs. States it is worse with cough. Reports it as a 6 out of 10 at this time. PO Tylenol given. Assisted with positioning. Reviewed plan of care and viral illness managment and isolation safety. Patient denies further needs at this time.
--- NOTE | 2019-07-12 00:50 | NUR ---
K-pad placed to right abdomen. Patient reports this is helping with his discomfort. Patient did cough of up a small amount of thick wren sputum. Remains on 2L NC at SpO2 96%. Will continue to monitor.
[2019-07-12 01:23] VITALS: BP 130/70
--- NOTE | 2019-07-12 02:40 | NUR ---
PO tylenol give for abdominal/right rib pain worsening with cough. Patient reports the K-pad has helped but also makes him warm. Patient given CHF binder and review documents. Patient was accepting and thankful for the information. Assisted with positioning and bed alarm in place. Will continue to monitor.
[2019-07-12 06:04] VITALS: BP 121/67
--- NOTE | 2019-07-12 06:45 | NUR ---
Patient remains on room air with SpO2 94%. Patient denies SOB at this time or feeling dizzy. Will continue to monitor.
[2019-07-12 07:05] LABS: HEMOGLOBIN 8.5 g/dL (13.5-18.0); MEAN CELL VOLUME 96 fl (78-100); MEAN CORPUSCULAR HEMOGLOBIN 29 pg (27-31); MEAN CORPUSCULAR HGB CONC 30 g/dL (33-37); MEAN PLATELET VOLUME 9.2 fl (7.4-10.4); PLATELET COUNT 89 K/mm3 (130-400); RED BLOOD COUNT 2.93 M/mm3 (4.20-5.60); RED CELL DISTRIBUTION WIDTH 14.8 % (11.5-14.5); WHITE BLOOD COUNT 3.7 K/mm3 (4.8-10.8)
--- NOTE | 2019-07-12 07:13 | NUR ---
Report given to Carole Hein RN.
[2019-07-12 07:22] LABS: ALBUMIN 3.7 g/dL (3.5-5.0); POTASSIUM 4.8 mmol/L (3.5-5.1)
[2019-07-12 07:25] LABS: TOTAL PROTEIN 6.3 g/dL (6.4-8.3)
[2019-07-12 07:26] LABS: TOTAL BILIRUBIN 0.4 mg/dL (0.2-1.2)
[2019-07-12 07:39] LABS: BAND 10 % (0-10); HYPOCHROMIA 1+; LYMPHOCYTE 9 % (20-51); MONOCYTE 4 % (3-10); NEUTROPHILS 77 % (42-75); POLYCHROMASIA 1+
--- NOTE | 2019-07-12 08:30 | NUR ---
Pt awakens with a start when name called. Denies any pain. Resp unlabored. INT intact in right forarm - site without redness or edema. O2 at 2 L/NC. Lungs with bilateral coarseness in bases. Call light in reach. Bed alarm on.
[2019-07-12 09:47] VITALS: BP 134/61
--- NOTE | 2019-07-12 12:00 | NUR ---
Pt is asking about the discharge plan as his needs to be at work at 2pm. [facility] aware and orders CXR. Lasix order received to restart bid. here. Pt states is ready to go home so can sleep. Ambulates in gtz w/ provider w/ sp02 91%. Returns to room - up in w/c in room.
--- NOTE | 2019-07-12 13:30 | NUR ---
Pt up in w/c. Sp02 check on RA 94-95% at this time. Lungs with coarness exp sounds in bilateral lungs. CXR report completed and given to provider. Pt choosing to go home one this day.
[2019-07-12 13:55] VITALS: BP 121/65
--- NOTE | 2019-07-12 14:20 | NUR ---
Pt is discharged to home to the care of his and to resume care w/ [facility] w/ whom he is already in a episode of care. [facility] is notified of pt discharge and records sent.
[2019-07-12 16:17] VITALS: BP 127/61
--- NOTE | 2019-07-12 16:25 | NUR ---
Discharge instructions reviewed w/ pt and and understanding verbalized.Pt dismissed via w/c per request. Sp02 95% on RA. No sputum able to be obtained during this day.
== END 2019-07-12 16:25 | disposition home health service (06) | DRG 194 ==
LOC: ED 17:05 → MED/SURG 19:28
PROVIDERS: Nurse Practitioner; ADMIT Physician Assistant
DX: J10.1 Influenza due to other identified influenza virus with other respiratory manifestations (principal); J44.1 Chronic obstructive pulmonary disease with (acute) exacerbation; D61.818 Other pancytopenia; E11.9 Type 2 diabetes mellitus without complications; I48.91 Unspecified atrial fibrillation; K21.9 Gastro-esophageal reflux disease without esophagitis; R09.02 Hypoxemia; E03.9 Hypothyroidism, unspecified; I50.9 Heart failure, unspecified; F41.9 Anxiety disorder, unspecified; R00.0 Tachycardia, unspecified; E87.5 Hyperkalemia; I11.0 Hypertensive heart disease with heart failure; N28.9 Disorder of kidney and ureter, unspecified; F17.210 Nicotine dependence, cigarettes, uncomplicated; Z79.01 Long term (current) use of anticoagulants; Z79.52 Long term (current) use of systemic steroids; Z79.84 Long term (current) use of oral hypoglycemic drugs; Z86.718 Personal history of other venous thrombosis and embolism
CPT/HCPCS: J1815; J2270; J2405; J2930; J7030

== ENCOUNTER 2019-10-18 15:02 | Inpatient (IN) | payer MEDICAID ==
[~2019-10-18] VITALS: Ht 190.5 cm; Wt 170.7 kg
[2019-10-18 15:35] LABS: EOS # 0.3 (0.04-0.40); EOS % 2.6 % (0.0-4.0); HEMATOCRIT 33.7 % (42.0-52.0); LYMPH# 2.1 (1.50-4.00); MEAN CELL VOLUME 90 fl (78-100); MEAN CORPUSCULAR HEMOGLOBIN 27 pg (27-31); MEAN CORPUSCULAR HGB CONC 30 g/dL (33-37); MEAN PLATELET VOLUME 9.3 fl (7.4-10.4); MONO # 1.2 (0.20-0.80); NEU # 7.8 (1.40-6.50); PLATELET COUNT 244 K/mm3 (130-400); RED BLOOD COUNT 3.75 M/mm3 (4.20-5.60); RED CELL DISTRIBUTION WIDTH 16.2 % (11.5-14.5); WHITE BLOOD COUNT 11.5 K/mm3 (4.8-10.8)
[2019-10-18 15:46] LABS: ALBUMIN 3.4 g/dL (3.5-5.0); POTASSIUM 3.2 mmol/L (3.5-5.1)
[2019-10-18 15:47] LABS: CALCIUM 7.4 mg/dL (8.3-10.5)
[2019-10-18 15:49] LABS: TOTAL PROTEIN 6.5 g/dL (6.4-8.3)
[2019-10-18 15:50] LABS: TOTAL BILIRUBIN 0.8 mg/dL (0.2-1.2)
[2019-10-18 18:55] VITALS: BP 106/63
[2019-10-18] MEDS ORDERED: HYDRALAZINE HYD50 MG PO (20:05)
[2019-10-18] MEDS ORDERED: ZESTRIL10 M1 PO (20:06)
[2019-10-18] MEDS ORDERED: LOPRESSOR 225 MG/TAB PO (20:07)
[2019-10-18] MEDS ORDERED: COLCHICINE0.6 M2 PO (20:08)
[2019-10-18] MEDS ORDERED: FEBUXOSTAT40 MG PO (21:19)
[2019-10-18 22:00] VITALS: BP 96/57
[2019-10-18 22:24] VITALS: BP 99/63
[2019-10-18 23:39] VITALS: BP 113/73
[2019-10-18 23:43] LABS: HEMATOCRIT 32.3 % (42.0-52.0); HEMOGLOBIN 9.8 g/dL (13.5-18.0)
[2019-10-19] VITALS (15 sets, daily range): BP systolic 80–124; BP diastolic 36–70
[2019-10-19 07:00] LABS: BASO # 0.1 (0.02-0.10); EOS # 0.5 (0.04-0.40); EOS % 2.9 % (0.0-4.0); HEMATOCRIT 34.3 % (42.0-52.0); HEMOGLOBIN 10.2 g/dL (13.5-18.0); LYMPH# 2.3 (1.50-4.00); MEAN CELL VOLUME 93 fl (78-100); MEAN CORPUSCULAR HEMOGLOBIN 28 pg (27-31); MEAN CORPUSCULAR HGB CONC 30 g/dL (33-37); MEAN PLATELET VOLUME 9.6 fl (7.4-10.4); MONO # 1.5 (0.20-0.80); PLATELET COUNT 290 K/mm3 (130-400); RED CELL DISTRIBUTION WIDTH 16.7 % (11.5-14.5); WHITE BLOOD COUNT 15.3 K/mm3 (4.8-10.8)
[2019-10-19 07:37] LABS: ALBUMIN 3.3 g/dL (3.5-5.0); POTASSIUM 4.6 mmol/L (3.5-5.1)
[2019-10-19 07:38] LABS: CALCIUM 6.9 mg/dL (8.3-10.5)
[2019-10-19 07:39] LABS: TOTAL PROTEIN 6.4 g/dL (6.4-8.3)
[2019-10-19 07:41] LABS: TOTAL BILIRUBIN 0.9 mg/dL (0.2-1.2)
[2019-10-19 08:53] LABS: URINE APPEARANCE CLEAR; URINE COLOR YELLOW; URINE PROTEIN(semi-quant) TRACE mg/dL (NEGATIVE); URINE WBC 0 /hpf (0-3)
[2019-10-19 08:54] LABS: URINE BILIRUBIN NEGATIVE (NEGATIVE); URINE BLOOD NEGATIVE (NEGATIVE); URINE GLUCOSE NEGATIVE (NEGATIVE); URINE KETONE NEGATIVE (NEGATIVE); URINE LEUKOCYTE ESTERASE NEGATIVE (NEGATIVE); URINE MUCUS PRESENT (NOT PRESENT); URINE NITRATE NEGATIVE (NEGATIVE); URINE UROBILINOGEN NORMAL (NORMAL)
[2019-10-19 13:08] LABS: HEMATOCRIT 32.5 % (42.0-52.0); HEMOGLOBIN 9.3 g/dL (13.5-18.0)
[2019-10-19 20:19] LABS: EOS # 0.4 (0.04-0.40); EOS % 3.5 % (0.0-4.0); HEMOGLOBIN 8.8 g/dL (13.5-18.0); MEAN CELL VOLUME 94 fl (78-100); MEAN CORPUSCULAR HEMOGLOBIN 27 pg (27-31); MEAN PLATELET VOLUME 9.2 fl (7.4-10.4); MONO # 1.2 (0.20-0.80); NEU # 8.7 (1.40-6.50); PLATELET COUNT 245 K/mm3 (130-400); RED CELL DISTRIBUTION WIDTH 16.6 % (11.5-14.5); WHITE BLOOD COUNT 12.4 K/mm3 (4.8-10.8)
[2019-10-19 20:20] LABS: MEAN CORPUSCULAR HGB CONC 28 g/dL (33-37)
[2019-10-19 20:26] LABS: ALBUMIN 3.3 g/dL (3.5-5.0); POTASSIUM 4.5 mmol/L (3.5-5.1)
[2019-10-19 20:27] LABS: CALCIUM 6.5 mg/dL (8.3-10.5)
[2019-10-19 20:28] LABS: TOTAL PROTEIN 6.1 g/dL (6.4-8.3)
[2019-10-19 20:30] LABS: TOTAL BILIRUBIN 0.9 mg/dL (0.2-1.2)
[2019-10-20 02:17] VITALS: BP 129/73
== END 2019-10-20 03:05 | disposition short-term general hospital (02) | DRG 442 ==
LOC: ED 15:02 → MED/SURG 17:54
PROVIDERS: Nurse Practitioner; Physician Assistant; ADMIT Nurse Practitioner Primary Care
DX: K76.89 Other specified diseases of liver (principal); N17.9 Acute kidney failure, unspecified; K83.9 Disease of biliary tract, unspecified; I50.9 Heart failure, unspecified; I11.0 Hypertensive heart disease with heart failure; I48.91 Unspecified atrial fibrillation; N28.9 Disorder of kidney and ureter, unspecified; R33.9 Retention of urine, unspecified; E11.9 Type 2 diabetes mellitus without complications; D72.829 Elevated white blood cell count, unspecified; I25.10 Atherosclerotic heart disease of native coronary artery without angina pectoris; E83.42 Hypomagnesemia; F10.10 Alcohol abuse, uncomplicated; F17.210 Nicotine dependence, cigarettes, uncomplicated; Z95.5 Presence of coronary angioplasty implant and graft; Z79.84 Long term (current) use of oral hypoglycemic drugs; Z79.01 Long term (current) use of anticoagulants; Z79.1 Long term (current) use of non-steroidal anti-inflammatories (NSAID); Z88.8 Allergy status to other drugs, medicaments and biological substances; Z91.81 History of falling
CPT/HCPCS: C9113; J2060; J2270; J2405; J3480; J7030; Q9967

== ENCOUNTER 2019-11-19 22:47 | Emergency (ER) | payer MEDICAID ==
[~2019-11-19] VITALS: Ht 190.5 cm; Wt 170.7 kg
[~2019-11-19 22:47] MED LIST changes: +COLCHICINE0.6 M2 PO; +FEBUXOSTAT40 MG PO; +HYDRALAZINE HYD50 MG PO; +LOPRESSOR 225 MG/TAB PO; +ZESTRIL10 M1 PO
[2019-11-19 23:25] LABS: EOS # 0.3 (0.04-0.40); EOS % 2.4 % (0.0-4.0); HEMATOCRIT 29.9 % (42.0-52.0); HEMOGLOBIN 9.1 g/dL (13.5-18.0); LYMPH# 1.9 (1.50-4.00); MEAN CELL VOLUME 90 fl (78-100); MEAN CORPUSCULAR HEMOGLOBIN 27 pg (27-31); MEAN CORPUSCULAR HGB CONC 30 g/dL (33-37); MEAN PLATELET VOLUME 9.9 fl (7.4-10.4); MONO # 0.6 (0.20-0.80); NEU # 7.9 (1.40-6.50); PLATELET COUNT 207 K/mm3 (130-400); RED BLOOD COUNT 3.33 M/mm3 (4.20-5.60); RED CELL DISTRIBUTION WIDTH 19.4 % (11.5-14.5); WHITE BLOOD COUNT 10.8 K/mm3 (4.8-10.8)
[2019-11-19 23:31] LABS: ALBUMIN 3.1 g/dL (3.5-5.0); POTASSIUM 3.6 mmol/L (3.5-5.1); SODIUM 135 mmol/L (136-145)
[2019-11-19 23:32] LABS: CALCIUM 7.6 mg/dL (8.3-10.5)
[2019-11-19 23:33] LABS: GLUCOSE 146 mg/dL (75-110)
[2019-11-19 23:34] LABS: TOTAL PROTEIN 6.7 g/dL (6.4-8.3)
[2019-11-19 23:35] LABS: TOTAL BILIRUBIN 0.6 mg/dL (0.2-1.2)
[2019-11-19 23:39] LABS: AST-SGOT 93 U/L (5-34)
[2019-11-19 23:40] LABS: ALT/SGPT 45 U/L (0-55)
[2019-11-19 23:51] LABS: D-DIMER 3.18 mg/L FEU (0.15-0.50)
[2019-11-20 00:12] LABS: CARBON DIOXIDE 14 mmol/L (22-29); TROPONIN-I < 0.03 ng/mL (<0.030)
[2019-11-20 01:03] LABS: URINE APPEARANCE CLEAR; URINE COLOR YELLOW
[2019-11-20 01:04] LABS: URINE BILIRUBIN NEGATIVE (NEGATIVE); URINE BLOOD NEGATIVE (NEGATIVE); URINE GLUCOSE NEGATIVE (NEGATIVE); URINE KETONE NEGATIVE (NEGATIVE); URINE LEUKOCYTE ESTERASE NEGATIVE (NEGATIVE); URINE MUCUS PRESENT (NOT PRESENT); URINE NITRATE NEGATIVE (NEGATIVE); URINE PROTEIN(semi-quant) TRACE mg/dL (NEGATIVE); URINE UROBILINOGEN NORMAL (NORMAL); URINE WBC 0-1 /hpf (0-3)
[2019-11-20 01:57] VITALS: BP 145/68
== END 2019-11-20 02:26 | disposition short-term general hospital (02) ==
LOC: ED 22:47
PROVIDERS: Nurse Practitioner Family
DX: J44.1 Chronic obstructive pulmonary disease with (acute) exacerbation (principal); J44.0 Chronic obstructive pulmonary disease with (acute) lower respiratory infection; J18.1 Lobar pneumonia, unspecified organism; E11.9 Type 2 diabetes mellitus without complications; I11.0 Hypertensive heart disease with heart failure; I50.9 Heart failure, unspecified; I48.91 Unspecified atrial fibrillation; I25.10 Atherosclerotic heart disease of native coronary artery without angina pectoris; I25.2 Old myocardial infarction; K21.9 Gastro-esophageal reflux disease without esophagitis; E66.9 Obesity, unspecified; Z20.828 Contact with and (suspected) exposure to other viral communicable diseases; Z79.01 Long term (current) use of anticoagulants; Z79.84 Long term (current) use of oral hypoglycemic drugs; Z86.711 Personal history of pulmonary embolism; Z95.5 Presence of coronary angioplasty implant and graft
CPT/HCPCS: J1200; J1940; J2270; J2405; J2543; J2930; J7030; Q9967

== ENCOUNTER 2019-12-30 00:05 | Emergency (ER) | payer MEDICAID ==
[~2019-12-30] VITALS: Ht 190.5 cm; Wt 152.3 kg
[2019-12-30] MEDS ORDERED: SEROQUEL 2525 MG/TAB PO (00:17)
[2019-12-30 01:10] LABS: EOS # 0.1 (0.04-0.40); EOS % 1.1 % (0.0-4.0); HEMATOCRIT 30.8 % (42.0-52.0); HEMOGLOBIN 9.3 g/dL (13.5-18.0); LYMPH# 2.1 (1.50-4.00); MEAN CELL VOLUME 91 fl (78-100); MEAN CORPUSCULAR HEMOGLOBIN 28 pg (27-31); MEAN CORPUSCULAR HGB CONC 30 g/dL (33-37); MEAN PLATELET VOLUME 9.6 fl (7.4-10.4); NEU # 7.7 (1.40-6.50); PLATELET COUNT 178 K/mm3 (130-400); RED BLOOD COUNT 3.37 M/mm3 (4.20-5.60); RED CELL DISTRIBUTION WIDTH 16.6 % (11.5-14.5)
[2019-12-30 01:24] LABS: POTASSIUM 4.5 mmol/L (3.5-5.1)
[2019-12-30 02:50] VITALS: BP 113/64
== END 2019-12-30 02:50 | disposition home or self-care (01) ==
LOC: ED 00:05
PROVIDERS: Family Medicine
DX: R06.00 Dyspnea, unspecified (principal); D64.9 Anemia, unspecified; E87.1 Hypo-osmolality and hyponatremia; I50.9 Heart failure, unspecified; E66.01 Morbid (severe) obesity due to excess calories; M94.0 Chondrocostal junction syndrome [Tietze]; J44.9 Chronic obstructive pulmonary disease, unspecified; E11.9 Type 2 diabetes mellitus without complications; F17.210 Nicotine dependence, cigarettes, uncomplicated; Z68.41 Body mass index [BMI] 40.0-44.9, adult; Z79.01 Long term (current) use of anticoagulants; Z79.84 Long term (current) use of oral hypoglycemic drugs

== ENCOUNTER 2020-02-08 19:29 | Emergency (ER) | payer MEDICAID ==
[~2020-02-08 19:29] MED LIST changes: +SEROQUEL 2525 MG/TAB PO
[2020-02-08 20:58] LABS: EOS # 0.3 (0.04-0.40); HEMATOCRIT 29.3 % (42.0-52.0); HEMOGLOBIN 9.4 g/dL (13.5-18.0); LYMPH# 1.7 (1.50-4.00); MEAN CELL VOLUME 88 fl (78-100); MEAN CORPUSCULAR HEMOGLOBIN 28 pg (27-31); MEAN CORPUSCULAR HGB CONC 32 g/dL (33-37); MONO # 0.8 (0.20-0.80); NEU # 6.4 (1.40-6.50); PLATELET COUNT 148 K/mm3 (130-400); RED BLOOD COUNT 3.33 M/mm3 (4.20-5.60); RED CELL DISTRIBUTION WIDTH 16.8 % (11.5-14.5); WHITE BLOOD COUNT 9.2 K/mm3 (4.8-10.8)
[2020-02-08 21:08] LABS: ALBUMIN 3.3 g/dL (3.5-5.0); POTASSIUM 5.4 mmol/L (3.5-5.1); SODIUM 121 mmol/L (136-145)
[2020-02-08 21:09] LABS: CALCIUM 7.9 mg/dL (8.3-10.5)
[2020-02-08 21:10] LABS: GLUCOSE 94 mg/dL (75-110); TOTAL PROTEIN 6.1 g/dL (6.4-8.3)
[2020-02-08 21:12] LABS: TOTAL BILIRUBIN 0.6 mg/dL (0.2-1.2)
[2020-02-08 21:13] LABS: URINE COLOR YELLOW
[2020-02-08 21:14] LABS: PH-URINE 5.5 (5.0 - 8.0); URINE APPEARANCE CLEAR; URINE BILIRUBIN NEGATIVE (NEGATIVE); URINE BLOOD NEGATIVE (NEGATIVE); URINE GLUCOSE NEGATIVE (NEGATIVE); URINE KETONE NEGATIVE (NEGATIVE); URINE LEUKOCYTE ESTERASE NEGATIVE (NEGATIVE); URINE NITRATE NEGATIVE (NEGATIVE); URINE PROTEIN(semi-quant) 1+ mg/dL (NEGATIVE); URINE UROBILINOGEN NORMAL (NORMAL)
[2020-02-08 21:16] LABS: AST-SGOT 108 U/L (5-34)
[2020-02-08 21:17] LABS: ALT/SGPT 27 U/L (0-55); LIPASE 23 U/L (8-78)
[2020-02-08 21:20] LABS: CARBON DIOXIDE 16 mmol/L (22-29)
[2020-02-08 21:23] LABS: TROPONIN-I < 0.03 ng/mL (<0.030)
[2020-02-09 00:12] VITALS: BP 118/62
== END 2020-02-09 00:12 | disposition short-term general hospital (02) ==
LOC: ED 19:29
PROVIDERS: Nurse Practitioner Family
DX: E87.5 Hyperkalemia (principal); E87.1 Hypo-osmolality and hyponatremia; K65.0 Generalized (acute) peritonitis; J18.1 Lobar pneumonia, unspecified organism; R65.20 Severe sepsis without septic shock; I11.0 Hypertensive heart disease with heart failure; J44.9 Chronic obstructive pulmonary disease, unspecified; I50.9 Heart failure, unspecified; E11.9 Type 2 diabetes mellitus without complications; F17.200 Nicotine dependence, unspecified, uncomplicated; Z20.828 Contact with and (suspected) exposure to other viral communicable diseases; Z88.8 Allergy status to other drugs, medicaments and biological substances; Z88.6 Allergy status to analgesic agent; Z79.01 Long term (current) use of anticoagulants; Z79.84 Long term (current) use of oral hypoglycemic drugs
CPT/HCPCS: C9113; J1170; J1940; J1956; J2060; J2270; J2405; J2543; J7030; Q9967

== ENCOUNTER 2020-02-23 23:38 | Emergency (ER) | payer MEDICAID ==
[2020-02-24 01:06] LABS: EOS # 0.1 (0.04-0.40); EOS % 1.9 % (0.0-4.0); HEMATOCRIT 27.2 % (42.0-52.0); HEMOGLOBIN 8.1 g/dL (13.5-18.0); LYMPH# 0.9 (1.50-4.00); MEAN CELL VOLUME 94 fl (78-100); MEAN CORPUSCULAR HEMOGLOBIN 28 pg (27-31); MEAN CORPUSCULAR HGB CONC 30 g/dL (33-37); MEAN PLATELET VOLUME 9.5 fl (7.4-10.4); MONO # 0.6 (0.20-0.80); NEU # 5.7 (1.40-6.50); PLATELET COUNT 186 K/mm3 (130-400); RED BLOOD COUNT 2.91 M/mm3 (4.20-5.60); RED CELL DISTRIBUTION WIDTH 17.4 % (11.5-14.5); WHITE BLOOD COUNT 7.4 K/mm3 (4.8-10.8)
[2020-02-24 01:17] LABS: CALCIUM 8.7 mg/dL (8.3-10.5)
[2020-02-24] MEDS ORDERED: LACTULOSE SYR 10/15 PO (01:42)
[2020-02-24] MEDS ORDERED: ROXICODONE 55 MG/TAB PO (01:43)
[2020-02-24] MEDS ORDERED: SEROQUEL XR150 MG PO (01:44)
[2020-02-24] MEDS ORDERED: XIFAXAN550 MG PO (01:45)
[2020-02-24] MEDS ORDERED: ESSENTIAL DAIL1 EACH PO (01:46)
[2020-02-24] MEDS ORDERED: XOPENEX HF0.045 MG/A IH (01:46)
[2020-02-24 08:07] VITALS: BP 133/57
== END 2020-02-24 08:04 | disposition home or self-care (01) ==
LOC: ED 23:38
PROVIDERS: Family Medicine
DX: N48.22 Cellulitis of corpus cavernosum and penis (principal); R60.1 Generalized edema; E11.9 Type 2 diabetes mellitus without complications; I48.91 Unspecified atrial fibrillation; I25.10 Atherosclerotic heart disease of native coronary artery without angina pectoris; I11.0 Hypertensive heart disease with heart failure; I50.9 Heart failure, unspecified; Z79.811 Long term (current) use of aromatase inhibitors